=== PATIENT | female | born 1935 | race Hispanic/Latino ===

== ENCOUNTER 2016-10-20 16:07 | Outpatient (CLI) | payer MEDICARE, OTHER ==
[2016-10-20 17:03] LABS: Bilirubin Negative (Negative); Blood, Urine Negative (Negative); Glucose, Urine (Dipstick) Negative (Negative); Ketone, Urine Negative (Negative); Nitrite Negative (Negative); Protein, Urine (Dipstick) 100 mg/dL (Neg-Trace); Urobilinogen 0.2 mg/dL (0.2-1.0)
[2016-10-20 17:08] LABS: RBC/HPF None Seen HPF (0-3); WBC/HPF None Seen HPF (0-3)
[2016-10-20 17:09] LABS: Bacteria/HPF 1+ HPF (None Seen)
== END 2016-10-20 16:08 | disposition home or self-care (01) ==
LOC: NAV LABSP 16:07
PROVIDERS: ATTEND Family Medicine
DX: N39.0 Urinary tract infection, site not specified (principal)
CPT/HCPCS: 81001

== ENCOUNTER 2016-12-12 16:33 | Emergency (ER) | payer MEDICARE, OTHER ==
--- NOTE | 2016-12-12 18:34 | CT ---
CERVICAL SPINE CT NONCONTRAST: Date: 12/12/16 COMPARISON: 07/11/16. INDICATION: Fall with neck pain. FINDINGS: There is motion artifact which limits the assessment. Trace C4-5 level spondylolisthesis is present, stable. No new compression fracture. There is prominent multilevel degenerative change of the cervi anna spine. No interval acute fracture. No retropulsion of bone into the vertebral canal. Incidental note of inspissated secretions of the sphenoid sinus. IMPRESSION: Prominent degenerative change of cervical spine, without evidence of an acute fracture. Incidental note of irregularity of the mandible bilaterally. This could related to motion artifact. Recommend clinical correlation to exclude pain in this region. If there is clinical concern, recomme nd dedicated facial CT. POS: [facility]
--- NOTE | 2016-12-12 18:51 | RAD ---
AP PELVIS: HISTORY: Fall, fell out of bed, right hip pain. FINDINGS/IMPRESSION: No acute fracture or dislocation is identified. POS: [facility]
--- NOTE | 2016-12-12 18:53 | RAD ---
RIGHT HIP 2 VIEWS: HISTORY: Right hip pain, fell out of bed. FINDINGS/IMPRESSION: Degenerative changes are present. No definite fracture or dislocation is identified. If there is high clinical suspicion for a fracture, further evaluation with CT scan should be perfor med. POS: [facility]
== END 2016-12-12 19:57 ==
LOC: NAV ERS 16:33
DX: S70.02XA Contusion of left hip, initial encounter (principal); S70.01XA Contusion of right hip, initial encounter; I10 Essential (primary) hypertension; F03.90 Unspecified dementia, unspecified severity, without behavioral disturbance, psychotic disturbance, mood disturbance, and anxiety; F41.9 Anxiety disorder, unspecified; E78.5 Hyperlipidemia, unspecified; Z79.899 Other long term (current) drug therapy; W19.XXXA Unspecified fall, initial encounter
CPT/HCPCS: 72125; 72170

== ENCOUNTER 2016-12-29 07:21 | Outpatient (CLI) | payer MEDICARE, OTHER ==
[2016-12-29 09:51] LABS: Bilirubin Negative (Negative); Blood, Urine Negative (Negative); Clarity Clear (Clear); Glucose, Urine (Dipstick) Negative (Negative); Leukocyte Negative (Negative); Nitrite Negative (Negative); Protein, Urine (Dipstick) Trace mg/dL (Neg-Trace); Specific Gravity, Urine 1.015 (1.005-1.030); Urobilinogen 0.2 mg/dL (0.2-1.0)
[2016-12-29 10:00] LABS: Bacteria/HPF None Seen HPF (None Seen); RBC/HPF None Seen HPF (0-3); Squamous Epithelial 0-3 HPF (0-3); WBC/HPF None Seen HPF (0-3)
== END 2016-12-29 07:22 | disposition home or self-care (01) ==
LOC: NAV LABSP 07:21
PROVIDERS: ATTEND Family Medicine
DX: R41.82 Altered mental status, unspecified (principal)
CPT/HCPCS: 81001; 87086

== ENCOUNTER 2017-01-13 15:41 | Emergency (ER) | payer MEDICARE, OTHER ==
[2017-01-13] MEDS ORDERED: Acetaminophen 325 MG TAB ONE (16:53)
--- NOTE | 2017-01-13 17:09 | CT ---
NONCONTRAST CT OF THE CERVICAL SPINE: Indication: History of fall with neck pain. Comparison: 12-12-16 IMPRESSION: No acute fracture or subluxation. COMMENTS: There is severe multilevel spondylosis of the cervical spine. Visualized lung apices are clear. The left thyroid lobe is not visualized and likely surgically resected. Motion artifact heavily limits i mage detail. There is diffuse osteopenia. There is scattered vascular calcifications. POS: [facility]
== END 2017-01-13 18:35 ==
LOC: NAV ERS 15:41
DX: S00.33XA Contusion of nose, initial encounter (principal); S00.83XA Contusion of other part of head, initial encounter; S80.11XA Contusion of right lower leg, initial encounter; I20.9 Angina pectoris, unspecified; E78.5 Hyperlipidemia, unspecified; I10 Essential (primary) hypertension; J44.9 Chronic obstructive pulmonary disease, unspecified; F41.9 Anxiety disorder, unspecified; F32.9 Major depressive disorder, single episode, unspecified; W18.30XA Fall on same level, unspecified, initial encounter; Z79.899 Other long term (current) drug therapy
CPT/HCPCS: 72125

== ENCOUNTER 2017-10-09 11:52 | Outpatient (CLI) | payer MEDICARE, OTHER ==
[2017-10-09 20:24] LABS: Anion Gap 14 mmol/L (10-20); BUN (Urea Nitrogen) 40 mg/dL (9.8-20.1); Calc. Creatinine Clearance 0 mL/min (70-130); Calcium 8.6 mg/dL (7.8-10.44); Carbon Dioxide 26 mmol/L (23-31); Chloride 104 mmol/L (98-107); Estimated GFR-MDRD 46; Glucose 86 mg/dL (83-110); Potassium 5.3 mmol/L (3.5-5.1); Sodium 139 mmol/L (136-145)
[2017-10-09 20:49] LABS: Eosinophils 4 % (0-10); Hemoglobin 10.7 g/dL (12.0-16.0); Lymphocytes 24 % (21-51); MDiff Complete? YES; Mean Corpuscular HGB CONC 32.6 g/dL (32.0-36.0); Mean Corpuscular Hemoglobin 31.7 pg (27.0-31.0); Mean Corpuscular Volume 97.3 fl (81.0-99.0); Mean Platelet Volume 10.2 fL (7.4-10.4); Monocytes 10 % (0-10); Neutrophil 62 % (42-75); Platelet Count 183 thou/uL (130-400); RBC Distribution Width 12.7 % (11.5-14.5); Red Blood Cell (RBC) Count 3.39 mill/uL (4.20-5.40); White Blood Cell (WBC) Count 6.9 thou/uL (4.8-10.8)
== END 2017-10-09 11:53 | disposition home or self-care (01) ==
LOC: NAV LABSP 11:52
PROVIDERS: ATTEND Family Medicine
DX: R50.9 Fever, unspecified (principal); R05 Cough; Z79.899 Other long term (current) drug therapy
CPT/HCPCS: 80048; 85025; 87804

== ENCOUNTER 2018-05-07 15:51 | Outpatient (CLI) | payer MEDICARE, OTHER ==
[2018-05-07 16:46] LABS: #Eosinphils 0.1 thou/uL (0.0-0.7); #Lymphocytes 1.4 thou/uL (1.20-3.40); #Monocytes 0.4 thou/uL (0.11-0.59); #Neutrophils 3.3 thou/uL (1.40-6.50); %Basophils 0.6 % (0.0-1.0); %Eosinophils 2.6 % (0.0-10.0); %Lymphocytes 26.4 % (21.0-51.0); %Monocytes 7.6 % (0.0-10.0); %Neutrophils 62.9 % (42.0-75.0); Hemoglobin 9.9 g/dL (12.0-16.0); Mean Corpuscular HGB CONC 31.2 g/dL (32.0-36.0); Mean Corpuscular Hemoglobin 28.3 pg (27.0-31.0); Mean Corpuscular Volume 90.9 fL (78.0-98.0); Mean Platelet Volume 8.7 fL (7.4-10.4); Platelet Count 180 thou/uL (130-400); RBC Distribution Width 12.9 % (11.5-14.5); White Blood Cell (WBC) Count 5.2 thou/uL (4.8-10.8)
== END 2018-05-07 15:52 | disposition home or self-care (01) ==
LOC: NAV LABSP 15:51
PROVIDERS: ATTEND Family Medicine
DX: R41.82 Altered mental status, unspecified (principal)
CPT/HCPCS: 80164; 82140; 85025

== ENCOUNTER 2018-08-15 13:27 | Emergency (ER) | payer MEDICARE, OTHER ==
[2018-08-15] MEDS ORDERED: Sodium Chloride 0.9% 100 ML ONE (13:51)
[2018-08-15] MEDS ORDERED: cefTRIAXone\\ROCEPHIN 1 GM VIAL ONE ×2 (13:51→13:52)
[2018-08-15 14:31] LABS: #Basophils 0.1 thou/uL (0.0-0.2); #Eosinphils 0.1 thou/uL (0.0-0.7); #Lymphocytes 1.2 thou/uL (1.20-3.40); #Monocytes 0.5 thou/uL (0.11-0.59); #Neutrophils 5.9 thou/uL (1.40-6.50); %Basophils 0.7 % (0.0-1.0); %Eosinophils 0.8 % (0.0-10.0); %Lymphocytes 15.4 % (21.0-51.0); %Monocytes 6.5 % (0.0-10.0); %Neutrophils 76.6 % (42.0-75.0); Hemoglobin 10.2 g/dL (12.0-16.0); Mean Corpuscular HGB CONC 31.6 g/dL (32.0-36.0); Mean Corpuscular Volume 94.7 fL (78.0-98.0); Mean Platelet Volume 7.9 fL (7.4-10.4); Platelet Count 227 thou/uL (130-400); RBC Distribution Width 13.1 % (11.5-14.5); Red Blood Cell (RBC) Count 3.41 mill/uL (4.20-5.40); White Blood Cell (WBC) Count 7.7 thou/uL (4.8-10.8)
[2018-08-15 14:39] LABS: Bilirubin Negative (Negative); Blood, Urine Trace (Negative); Glucose, Urine (Dipstick) Negative (Negative); Leukocyte Moderate (Negative); Nitrite Negative (Negative); Protein, Urine (Dipstick) 30 mg/dL (Neg-Trace); Urobilinogen 0.2 mg/dL (0.2-1.0); pH, Urine 6.5 (5.0-9.0)
[2018-08-15 14:44] LABS: ALT (SGPT) 14 U/L (8-55); AST (SGOT) 22 U/L (5-34); Alkaline Phosphatase 89 U/L (40-150); Anion Gap 17 mmol/L (10-20); BUN (Urea Nitrogen) 34 mg/dL (9.8-20.1); Bilirubin, Total 0.3 mg/dL (0.2-1.2); CK (CPK) 73 U/L (29-168); Calc. Creatinine Clearance 0 mL/min (70-130); Calcium 9.3 mg/dL (7.8-10.44); Carbon Dioxide 22 mmol/L (23-31); Chloride 103 mmol/L (98-107); Estimated GFR-MDRD 39; Globulin 2.9 g/dL (2.4-3.5); Glucose 102 mg/dL (83-110); Potassium 5.8 mmol/L (3.5-5.1); Protein, Total 6.9 g/dL (6.0-8.3); Sodium 136 mmol/L (136-145)
[2018-08-15 14:47] LABS: CKMB 1.6 ng/mL (0-6.6)
[2018-08-15 14:50] LABS: Clarity SL HAZY (Clear)
[2018-08-15 14:54] LABS: Bacteria/HPF 1+ HPF (None Seen); RBC/HPF 0-3 HPF (0-3); Squamous Epithelial 0-3 HPF (0-3); Transitional Epithelial 0-3 HPF (0-3)
[2018-08-15] MEDS ORDERED: Nitroglycerin 2% Ointment 1 INCH/1 GM Packet ONE (14:55)
[2018-08-15] MEDS ORDERED: Dextrose 50% Abboject 50 ML SYRINGE ONE (14:56)
[2018-08-15] MEDS ORDERED: Insulin Regular 300 UNITS/3 ML VIAL ONE (14:56)
[2018-08-15] MEDS ORDERED: Enoxaparin Sodium 80 MG/0.8 ML SYRINGE ONE (15:14)
--- NOTE | 2018-08-15 15:28 | RAD ---
PORTABLE CHEST: DATE: 08/15/2018. PROVIDED CLINICAL HISTORY: Cough. FINDINGS: Comparison 01/14/2018. Cardiac silhouette remains enlarged. There is suboptimal evaluation of the le ft lung base with pleural and/or parenchymal opacity not excluded on the basis of this study. Promin ence of the pulmonary vasculature and pulmonary interstitium are redemonstrated. NO evidence for pne umothorax. IMPRESSION: 1. Cardiomegaly with possible left basilar pleural and/or parenchymal opacity. Consider correlating with a lateral view. 2. Pulmonary vascular congestion. Correlate for congestive failure. POS: [facility]
[2018-08-15 15:59] LABS: Anion Gap 15 mmol/L (10-20); BUN (Urea Nitrogen) 33 mg/dL (9.8-20.1); Calc. Creatinine Clearance 0 mL/min (70-130); Calcium 8.6 mg/dL (7.8-10.44); Carbon Dioxide 21 mmol/L (23-31); Chloride 104 mmol/L (98-107); Estimated GFR-MDRD 39; Glucose 203 mg/dL (83-110); Potassium 4.8 mmol/L (3.5-5.1); Sodium 135 mmol/L (136-145)
== END 2018-08-15 16:02 | disposition short-term general hospital (02) ==
LOC: NAV ERS 13:27
DX: E87.5 Hyperkalemia (principal); R79.89 Other specified abnormal findings of blood chemistry; I11.0 Hypertensive heart disease with heart failure; I50.9 Heart failure, unspecified; E78.5 Hyperlipidemia, unspecified; Z86.73 Personal history of transient ischemic attack (TIA), and cerebral infarction without residual deficits; F03.90 Unspecified dementia, unspecified severity, without behavioral disturbance, psychotic disturbance, mood disturbance, and anxiety; F41.9 Anxiety disorder, unspecified; F32.9 Major depressive disorder, single episode, unspecified; F29 Unspecified psychosis not due to a substance or known physiological condition; Z79.899 Other long term (current) drug therapy
CPT/HCPCS: 51701; 71045; 80053; 81003; 81015; 82550; 82553; 83605; 84484; 85025; 87040; 87086; 87804; 93005; 94760; 96365; 96367; 96372; 96375; A4353; J0696; J1650; J1815; J1956; J7050